=== PATIENT | male | born 1990 | race Caucasian/White ===

== ENCOUNTER → 2020-09-10 10:50 | Outpatient (BNVA) | payer BC, SELFPAY | PROVIDERS: Visit Provider Physician Assistant | DX: Z20.822 Contact with and (suspected) exposure to COVID-19 (principal) | CPT/HCPCS: 87426 ==

== ENCOUNTER 2024-09-29 07:55 | Outpatient (CLI) | payer MEDICAID, SELFPAY ==
--- NOTE | 2024-09-29 08:00 | MR_ITS ---
WS: [id number] MRI LEFT KNEE NONCONTRAST TECHNIQUE: Axial PD, coronal PD fat sat, coronal PD, sagittal PD, and sagittal PD fat-sat images obtained. CLINICAL INFORMATION: left knee pain/loose bodies/rule out meniscus tear COMPARISON: None. FINDINGS: Prior postoperative changes ACL repair with femoral and tibial fixation screws. Associated susceptibility artifact. Diffuse increased signal with thickening of the ACL graft which appears grossly intact. PCL appears intact. Hypertrophic patella. Distal quadriceps and patella tendons appear intact. Advanced chondromalacia patella with chondral fissuring. Medial and lateral patellar retinaculum appear intact. Medial and lateral collateral ligaments appear intact. Normal popliteus. Fibular head appears normal. Complex tear involving the posterior horn medial meniscus extending to the peripheral articular surface and meniscal root. Associated parameniscal cyst measuring 10 x 7 mm. Small calcified loose bodies along Hoffa's fat pad. MR/MR knee LT wo con* [id number] IMPRESSION: 1. Prior ACL repair with diffuse thickening of the graft which appears grossly intact. Normal PCL. 2. Advanced chondromalacia patella with chondral fissuring. 3. Tear of the posterior horn medial meniscus with a small associated parameni scal cyst described above. Outbridge grading: grade IV: full-thickness cartilage loss with underlying bone reactive changes
== END 2024-09-29 07:56 | disposition home or self-care (01) ==
PROVIDERS: PCP Family Medicine; Visit Provider Student in an Organized Health Care Education/Training Program
DX: M25.562 Pain in left knee (principal); G89.29 Other chronic pain; M23.42 Loose body in knee, left knee; S83.8X2A Sprain of other specified parts of left knee, initial encounter; Z98.890 Other specified postprocedural states; X58.XXXA Exposure to other specified factors, initial encounter; M22.42 Chondromalacia patellae, left knee; S83.242A Other tear of medial meniscus, current injury, left knee, initial encounter; R93.6 Abnormal findings on diagnostic imaging of limbs
CPT/HCPCS: 73721